=== PATIENT | female | born 1955 | race Caucasian/White ===

== ENCOUNTER 2024-09-14 11:52 | Outpatient (CLI) | payer MEDICARE, SELFPAY ==
[2024-09-14 12:34] LABS: Basophils % 0.9 %; Eosinophils # 0.1 10^3/uL (0.0-0.8); Eosinophils % 2.7 %; Hematocrit 27.9 % (36-47); Lymphocytes # 0.4 10^3/uL (0.8-4.8); Lymphocytes % 9.9 %; Mean Corpuscular HGB Conc 32.6 g/dL (30-55); Mean Corpuscular Hemoglobin 34.6 pg (27-33); Mean Corpuscular Volume 106.1 fl (85-98); Mean Platelet Volume 8.6 fL (7.4-10.4); Monocytes # 0.7 10^3/uL (0.2-0.9); Neutrophils # 3.16 10^3/uL (1.8-7.7); Neutrophils % 70.8 %; Nucleated Red Blood Cells % 0 %; Platelet Count 222 10^3/cmm (157-399); Red Blood Count 2.63 10^6/uL (3.85-5.65); Red Cell Distribution Width 20.9 % (12.1-15.1); White Blood Count 4.46 10^3/uL (3.29-11.43)
[2024-09-14 12:55] LABS: Alanine Aminotransferase 11 U/L (0-33); Alkaline Phosphatase 89 U/L (35-105); Anion Gap 14.6 (5-19); Aspartate Amino Transferase 12 U/L (0-32); Blood Urea Nitrogen 19 mg/dL (8-23); Calcium 9.2 mg/dL (8.5-10.5); Carbon Dioxide 23 mmol/L (22-29); Chloride 107 mmol/L (98-107); Globulin 3.2 g/dL (1.3-4.6); Glomerular Filtration Rate 44.8 mL/min (90-130); Glucose 107 mg/dL (65-115); Magnesium 2.2 mg/dL (1.7-2.3); Osmolality Calculated 293 mOsm/kg (285-295); Potassium 4.6 mmol/L (3.5-5.1); Sodium 140 mmol/L (136-145); Total Bilirubin 0.3 mg/dL (0.15-1.2); Total Protein 7.2 g/dL (6.6-8.7)
== END 2024-09-14 11:53 | disposition home or self-care (01) ==
LOC: LAB 11:58
PROVIDERS: Visit Provider Obstetrics & Gynecology Gynecologic Oncology
DX: C53.9 Malignant neoplasm of cervix uteri, unspecified (principal)
CPT/HCPCS: 36415; 80053; 83735; 85025

== ENCOUNTER 2024-10-29 10:00 | Outpatient (CLI) | payer MEDICARE, SELFPAY ==
[2024-10-29 10:31] LABS: Basophils # 0.1 10^3/uL (0.0-0.1); Basophils % 1.6 %; Eosinophils # 0.2 10^3/uL (0.0-0.8); Hematocrit 38.7 % (36-47); Lymphocytes # 0.4 10^3/uL (0.8-4.8); Lymphocytes % 10.2 %; Mean Corpuscular Hemoglobin 34.2 pg (27-33); Mean Corpuscular Volume 114.2 fl (85-98); Mean Platelet Volume 8.8 fL (7.4-10.4); Monocytes # 0.4 10^3/uL (0.2-0.9); Monocytes % 9.1 %; Neutrophils # 2.78 10^3/uL (1.8-7.7); Neutrophils % 72.6 %; Nucleated Red Blood Cells % 0 %; Platelet Count 210 10^3/cmm (157-399); Red Blood Count 3.39 10^6/uL (3.85-5.65); Red Cell Distribution Width 12.8 % (12.1-15.1); White Blood Count 3.83 10^3/uL (3.29-11.43)
[2024-10-29 10:54] LABS: Alanine Aminotransferase 9 U/L (0-33); Albumin Level 3.8 g/dL (3.5-5.2); Alkaline Phosphatase 92 U/L (35-105); Blood Urea Nitrogen 22 mg/dL (8-23); Calcium 9.2 mg/dL (8.5-10.5); Carbon Dioxide 21 mmol/L (22-29); Chloride 105 mmol/L (98-107); Globulin 3.4 g/dL (1.3-4.6); Glomerular Filtration Rate 40.9 mL/min (90-130); Glucose 102 mg/dL (65-115); Magnesium 2.1 mg/dL (1.7-2.3); Osmolality Calculated 286 mOsm/kg (285-295); Sodium 136 mmol/L (136-145); Total Bilirubin 0.3 mg/dL (0.15-1.2); Total Protein 7.2 g/dL (6.6-8.7)
[2024-10-29 11:03] LABS: Anion Gap 14.3 (5-19); Aspartate Amino Transferase 14 U/L (0-32); Potassium 4.3 mmol/L (3.5-5.1)
[2024-10-29 11:12] LABS: Slide Review Slide Review Perform
== END 2024-10-29 10:01 | disposition home or self-care (01) ==
PROVIDERS: PCP Nurse Practitioner Family
DX: C53.9 Malignant neoplasm of cervix uteri, unspecified (principal)
CPT/HCPCS: 36415; 80053; 83735; 85025

== ENCOUNTER 2024-12-13 10:15 | Outpatient (CLI) | payer MEDICARE, SELFPAY ==
[2024-12-13 11:55] LABS: Hematocrit 38.6 % (36-47); Hemoglobin 12.40 g/dL (11.27-16.99); Mean Corpuscular HGB Conc 32.1 g/dL (30-55); Mean Corpuscular Hemoglobin 32.0 pg (27-33); Mean Corpuscular Volume 99.7 fl (85-98); Nucleated Red Blood Cells % 0 %; Platelet Count 241 10^3/cmm (157-399); Red Blood Count 3.87 10^6/uL (3.85-5.65); White Blood Count 4.94 10^3/uL (3.29-11.43)
[2024-12-13 12:15] LABS: Alanine Aminotransferase 10 U/L (0-33); Albumin Level 3.8 g/dL (3.5-5.2); Alkaline Phosphatase 96 U/L (35-105); Aspartate Amino Transferase 14 U/L (0-32); Blood Urea Nitrogen 26 mg/dL (8-23); Calcium 9.2 mg/dL (8.5-10.5); Carbon Dioxide 19 mmol/L (22-29); Chloride 106 mmol/L (98-107); Globulin 3.3 g/dL (1.3-4.6); Glucose 86 mg/dL (65-115); Magnesium 2.3 mg/dL (1.7-2.3); Osmolality Calculated 290 mOsm/kg (285-295); Sodium 138 mmol/L (136-145); Total Protein 7.1 g/dL (6.6-8.7)
[2024-12-13 12:20] LABS: Anion Gap 17.6 (5-19); Potassium 4.6 mmol/L (3.5-5.1)
== END 2024-12-13 10:16 | disposition home or self-care (01) ==
PROVIDERS: PCP Nurse Practitioner Family; Visit Provider Obstetrics & Gynecology Gynecologic Oncology
DX: C53.9 Malignant neoplasm of cervix uteri, unspecified (principal)
CPT/HCPCS: 80053; 83735; 85025

== ENCOUNTER 2025-01-21 11:14 | Outpatient (CLI) | payer MEDICARE, SELFPAY ==
[2025-01-21 12:11] LABS: Hematocrit 35.4 % (36-47); Hemoglobin 11.40 g/dL (11.27-16.99); Mean Corpuscular HGB Conc 32.2 g/dL (30-55); Mean Corpuscular Hemoglobin 31.2 pg (27-33); Mean Corpuscular Volume 97.0 fl (85-98); Nucleated Red Blood Cells % 0 %; Platelet Count 223 10^3/cmm (157-399); Red Blood Count 3.65 10^6/uL (3.85-5.65); White Blood Count 4.62 10^3/uL (3.29-11.43)
[2025-01-21 12:30] LABS: Alanine Aminotransferase 10 U/L (0-33); Albumin Level 3.8 g/dL (3.5-5.2); Alkaline Phosphatase 91 U/L (35-105); Anion Gap 12.4 (5-19); Aspartate Amino Transferase 10 U/L (0-32); Blood Urea Nitrogen 27 mg/dL (8-23); Calcium 8.8 mg/dL (8.5-10.5); Carbon Dioxide 23 mmol/L (22-29); Chloride 108 mmol/L (98-107); Globulin 2.9 g/dL (1.3-4.6); Glucose 98 mg/dL (65-115); Magnesium 2.2 mg/dL (1.7-2.3); Osmolality Calculated 293 mOsm/kg (285-295); Potassium 4.4 mmol/L (3.5-5.1); Sodium 139 mmol/L (136-145); Total Protein 6.7 g/dL (6.6-8.7)
[2025-01-24 15:20] LABS: Free T4 Free Thyroxine 1.07 ng/dL (0.82-1.77); Thyroid Stimulating Hormone 1.80 uIU/mL (0.27-4.20)
== END 2025-01-21 11:15 | disposition home or self-care (01) ==
LOC: LAB 11:16
PROVIDERS: PCP Nurse Practitioner Family; Visit Provider Obstetrics & Gynecology Gynecologic Oncology
DX: C53.9 Malignant neoplasm of cervix uteri, unspecified (principal); R94.6 Abnormal results of thyroid function studies
CPT/HCPCS: 36415; 80053; 83735; 84439; 84443; 85025

== ENCOUNTER 2025-03-04 11:17 | Outpatient (CLI) | payer MEDICARE, SELFPAY ==
[2025-03-04 12:51] LABS: Hematocrit 36.4 % (36-47); Hemoglobin 12.00 g/dL (11.27-16.99); Mean Corpuscular HGB Conc 33.0 g/dL (30-55); Mean Corpuscular Hemoglobin 31.2 pg (27-33); Mean Corpuscular Volume 94.5 fl (85-98); Nucleated Red Blood Cells % 0 %; Platelet Count 242 10^3/cmm (157-399); Red Blood Count 3.85 10^6/uL (3.85-5.65); White Blood Count 4.96 10^3/uL (3.29-11.43)
[2025-03-04 13:25] LABS: Alanine Aminotransferase 10 U/L (0-33); Albumin Level 3.8 g/dL (3.5-5.2); Alkaline Phosphatase 103 U/L (35-105); Anion Gap 15.4 (5-19); Aspartate Amino Transferase 14 U/L (0-32); Blood Urea Nitrogen 34 mg/dL (8-23); Calcium 9.0 mg/dL (8.5-10.5); Carbon Dioxide 22 mmol/L (22-29); Chloride 108 mmol/L (98-107); Free T4 Free Thyroxine 1.24 ng/dL (0.82-1.77); Globulin 2.9 g/dL (1.3-4.6); Glucose 90 mg/dL (65-115); Magnesium 1.9 mg/dL (1.7-2.3); Osmolality Calculated 299 mOsm/kg (285-295); Potassium 4.4 mmol/L (3.5-5.1); Sodium 141 mmol/L (136-145); Thyroid Stimulating Hormone 1.29 uIU/mL (0.27-4.20); Total Protein 6.7 g/dL (6.6-8.7)
== END 2025-03-04 11:18 | disposition home or self-care (01) ==
LOC: LAB 11:23
PROVIDERS: PCP Nurse Practitioner Family; Visit Provider Obstetrics & Gynecology Gynecologic Oncology
DX: R94.6 Abnormal results of thyroid function studies (principal)
CPT/HCPCS: 36415; 80053; 83735; 84439; 84443; 85025

== ENCOUNTER 2025-04-18 11:42 | Outpatient (CLI) | payer MEDICARE, SELFPAY ==
[2025-04-18 12:41] LABS: Hematocrit 37.9 % (36-47); Hemoglobin 12.60 g/dL (11.27-16.99); Mean Corpuscular HGB Conc 33.2 g/dL (30-55); Mean Corpuscular Hemoglobin 32.3 pg (27-33); Mean Corpuscular Volume 97.2 fl (85-98); Nucleated Red Blood Cells % 0 %; Platelet Count 229 10^3/cmm (157-399); Red Blood Count 3.90 10^6/uL (3.85-5.65); White Blood Count 4.98 10^3/uL (3.29-11.43)
[2025-04-18 12:57] LABS: Alanine Aminotransferase 9 U/L (0-33); Albumin Level 4.1 g/dL (3.5-5.2); Alkaline Phosphatase 97 U/L (35-105); Anion Gap 14.0 (5-19); Aspartate Amino Transferase 23 U/L (0-32); Blood Urea Nitrogen 26 mg/dL (8-23); Calcium 8.6 mg/dL (8.5-10.5); Carbon Dioxide 23 mmol/L (22-29); Chloride 108 mmol/L (98-107); Globulin 2.7 g/dL (1.3-4.6); Glucose 99 mg/dL (65-115); Magnesium 2.2 mg/dL (1.7-2.3); Osmolality Calculated 295 mOsm/kg (285-295); Potassium 5.0 mmol/L (3.5-5.1); Sodium 140 mmol/L (136-145); Total Protein 6.8 g/dL (6.6-8.7)
[2025-04-18 14:02] LABS: Free T4 Free Thyroxine 0.97 ng/dL (0.82-1.77); Thyroid Stimulating Hormone 1.74 uIU/mL (0.27-4.20)
== END 2025-04-18 11:43 | disposition home or self-care (01) ==
PROVIDERS: PCP Nurse Practitioner Family; Visit Provider Obstetrics & Gynecology Gynecologic Oncology
DX: R94.6 Abnormal results of thyroid function studies (principal)
CPT/HCPCS: 36415; 80053; 83735; 84439; 84443; 85025